=== PATIENT | male | born 1960 | race Caucasian/White ===

== ENCOUNTER 2019-07-05 01:57 | Outpatient (CLI) | payer BC, SELFPAY ==
[2019-07-05 12:22] LABS: Calculated LDL 48 mg/dL (<100); Cholesterol 115 mg/dL (<200); Glucose 91 mg/dL (74-106); HDL Cholesterol 44 mg/dL (40-60); Triglyceride 119 mg/dL (<150)
[2019-07-08 10:05] LABS: PSA, Screening 0.7 ng/mL (0.0-4.5)
== END 2019-07-05 02:17 ==
PROVIDERS: PCP Family Medicine; Visit Provider Family Medicine
DX: E78.5 Hyperlipidemia, unspecified (principal); R73.9 Hyperglycemia, unspecified; Z12.5 Encounter for screening for malignant neoplasm of prostate
CPT/HCPCS: 36415; 80061; 82947; 84153

== ENCOUNTER 2019-11-19 07:37 | Outpatient (CLI) | payer BC, SELFPAY ==
[2019-11-21 07:38] LABS: SARS-CoV-2 RNA Undetected (Undetected)
== END 2019-11-19 07:57 ==
PROVIDERS: PCP Family Medicine; Visit Provider Family Medicine
DX: Z11.59 Encounter for screening for other viral diseases (principal)
CPT/HCPCS: U0003

== ENCOUNTER 2020-06-23 09:58 | Outpatient (CLI) | payer BC, SELFPAY ==
[2020-06-24 12:26] LABS: COVID-19 RT-PCR UVMMC Result Positive (Negative)
== END 2020-06-23 09:59 | disposition home or self-care (01) ==
LOC: LBO 09:58
PROVIDERS: PCP Family Medicine; Visit Provider Family Medicine
DX: Z20.822 Contact with and (suspected) exposure to COVID-19 (principal)
CPT/HCPCS: U0003

== ENCOUNTER 2020-07-02 01:17 | Outpatient (CLI) | payer BC, SELFPAY ==
--- NOTE | 2020-07-02 07:00 | DI.RAD_ITS ---
EXAM: XR CHEST 2V PA LATERAL CLINICAL HISTORY: cough; fever; covid 19 positive,U07.1 TECHNIQUE: 2D digital imaging was performed. COMPARISON: No exams were available for comparison FINDINGS: MEDIASTINUM: Normal. HEART: Normal. PULMONARY VASCULATURE: Normal. LUNGS: Clear. PLEURAL SPACE: No pleural effusion or pneumothorax. BONE:Within normal limits for the patient's age. OTHER FINDINGS:Normal. IMPRESSION: No acute pulmonary findings. DATA REPOSITORY: RADIATION DOSE DELIVERED:
== END 2020-07-02 01:37 ==
PROVIDERS: PCP Family Medicine; Visit Provider Family Medicine
DX: U07.1 COVID-19 (principal)
CPT/HCPCS: 71046

== ENCOUNTER 2020-07-22 17:31 | Outpatient (REF) | payer BC, SELFPAY ==
[2020-07-22 22:32] LABS: CREATININE 1.2 mg/dL (0.70-1.30); Calculated LDL 51 mg/dL (<100); Cholesterol 165 mg/dL (<200); Glucose 94 mg/dL (74-106); HDL Cholesterol 41 mg/dL (40-60); Triglyceride 367 mg/dL (<150)
[2020-07-23 17:18] LABS: PSA, Diagnostic 1.2 ng/mL (0.0-4.5)
== END 2020-07-22 17:32 | disposition home or self-care (01) ==
LOC: LBN 17:31
PROVIDERS: PCP Family Medicine; Visit Provider Family Medicine
DX: R73.9 Hyperglycemia, unspecified (principal); I10 Essential (primary) hypertension; E78.5 Hyperlipidemia, unspecified; C61 Malignant neoplasm of prostate
CPT/HCPCS: 80061; 82947; 82565; 84153

== ENCOUNTER 2020-08-12 21:36 | Outpatient (REF) | payer BC, SELFPAY ==
[2020-08-12 16:30] LABS: Triglyceride 208 mg/dL (<150)
== END 2020-08-12 21:37 | disposition home or self-care (01) ==
LOC: LBN 21:36
PROVIDERS: PCP Family Medicine; Visit Provider Family Medicine
DX: E78.1 Pure hyperglyceridemia (principal)
CPT/HCPCS: 84478

== ENCOUNTER 2021-11-23 03:07 | Outpatient (CLI) | payer BC, SELFPAY ==
[2021-11-23 08:42] LABS: Calculated LDL 65 mg/dL (<100); Cholesterol 134 mg/dL (<200); HDL Cholesterol 49 mg/dL (40-60); Triglyceride 100 mg/dL (<150)
== END 2021-11-23 03:08 | disposition home or self-care (01) ==
LOC: LBO 03:10
PROVIDERS: PCP Family Medicine; Visit Provider Family Medicine
DX: E78.5 Hyperlipidemia, unspecified (principal); Z12.5 Encounter for screening for malignant neoplasm of prostate
CPT/HCPCS: 36415; 80061; 84153

== ENCOUNTER 2023-02-15 09:53 | Outpatient (CLI) | payer BC, SELFPAY ==
[2023-02-15 12:48] LABS: CREATININE 1.2 mg/dL (0.70-1.30); Estimated GFR 67.95 (mL/min/1.73m2); Glucose 107 mg/dL (74-106)
[2023-02-15 18:24] LABS: PSA, Screening 1.5 ng/mL (<=4.5)
== END 2023-02-15 09:54 | disposition home or self-care (01) ==
LOC: LOS 09:53
PROVIDERS: PCP Family Medicine; Referring Provider Family Medicine; Visit Provider Family Medicine
DX: Z12.5 Encounter for screening for malignant neoplasm of prostate; Z00.00 Encounter for general adult medical examination without abnormal findings
CPT/HCPCS: 36415; 82947; 84153; 82565

== ENCOUNTER 2024-02-28 16:44 | Outpatient (CLI) | payer BC, SELFPAY ==
[2024-02-28 16:38] LABS: Hemoglobin A1C 5.4 % (<5.7)
[2024-02-28 16:54] LABS: CREATININE 1.1 mg/dL (0.70-1.30); Calculated LDL 92 mg/dL (<100); Cholesterol 163 mg/dL (<200); Estimated GFR 74.96 (mL/min/1.73m2); HDL Cholesterol 57 mg/dL (40-60); Triglyceride 73 mg/dL (<150)
[2024-02-29 19:47] LABS: PSA, Screening 1.1 ng/mL (<=4.5)
== END 2024-02-28 16:45 | disposition home or self-care (01) ==
LOC: LBO 16:45
PROVIDERS: PCP Family Medicine; Visit Provider Family Medicine
DX: Z12.5 Encounter for screening for malignant neoplasm of prostate (principal); E11.51 Type 2 diabetes mellitus with diabetic peripheral angiopathy without gangrene; I70.209 Unspecified atherosclerosis of native arteries of extremities, unspecified extremity; E78.5 Hyperlipidemia, unspecified; I10 Essential (primary) hypertension
CPT/HCPCS: 36415; 80061; 84153; 82565; 83036

== ENCOUNTER → 2024-06-27 10:48 | Outpatient (BNVA) | payer MEDICARE, OTHER, SELFPAY | PROVIDERS: PCP Family Medicine; Referring Provider Family Medicine; Visit Provider Student in an Organized Health Care Education/Training Program | DX: K40.91 Unilateral inguinal hernia, without obstruction or gangrene, recurrent (principal) | CPT/HCPCS: 99204 ==

== ENCOUNTER 2024-07-24 06:04 | Day surgery (SDC) | payer MEDICARE, OTHER, SELFPAY ==
[2024-07-24] VITALS (31 sets, daily range): BP systolic 114–143; BP diastolic 71–99; PULSE 41–75; RESP 10–31; TEMP 36–36.6; O2SAT 93–98; BMI 30.2
[2024-07-24] MEDS: Heparin 5,000 UNITS/ML VIAL 5000 UNITS SC (06:47)
[2024-07-24] MEDS: Lactated Ringers 1,000 ML 80 ML IV (06:47)
--- NOTE | 2024-07-24 07:11 | W.ANESPRE ---
General Info Date of Service Date Performed: 07/24/24 Height: 5 ft 7 in Weight: 87.4 kg Body Mass Index (BMI): 30.2 Surgical Procedure: Operation Date: 07/24/24 07:40 Proposed Procedure Side Surgeon p Hernia Inguinal Laparoscopic w/Mesh Right Chavo Mathews MD Meds Allergies and Home Medications Allergies Allergy/AdvReac Type Severity Reaction Status Date / Time No Known Allergies Allergy Verified 07/24/24 06:40 Home Medication ?Medication ?Instructions ?Recorded multivitamin (Daily Multi-Vitamin 1 tab PO DAILY 06/19/19 tablet) ascorbic acid (vitamin C) 1,000 mg 1 g PO Q6H 07/22/20 tablet cholecalciferol (vitamin D3) 25 25 mcg PO DAILY Taking in winter02/28/24 mcg (1,000 unit) capsule (Vitamin D3) rosuvastatin 10 mg tablet 10 mg PO DAILY #90 tabs 03/25/24 Current Visit Medications: Current Medications Generic Name Dose Route Start Last Admin Trade Name Freq PRN Reason Stop Dose Admin Heparin Sodium (Porcine) 5,000 units 07/24/24 06:00 07/24/24 06:47 Heparin 5,000 Units/Ml Vial SC 07/24/24 23:59 5,000 units PREOP MUKESH Administration Ringer's Solution 1,000 mls @ 80 mls/hr 07/24/24 06:00 07/24/24 06:47 IV 07/24/24 23:59 80 mls/hr INFUSION MUKESH Administration IV Miscellaneous Supplies 1 each 07/24/24 06:00 Iv Access IV 07/24/24 23:59 DIRECTED MUKESH Sodium Chloride 0 ml 07/24/24 06:00 Normal Saline Flush 10 Ml Syr IV 07/24/24 23:59 PRN PRN Sodium Chloride 0 ml 07/24/24 06:00 Normal Saline 10 Ml Vial IJ 07/24/24 23:59 DIRECTED PRN Sterile Water 0 ml 07/24/24 06:00 Water,Injection,Sterile 10 Ml Vial IJ 07/24/24 23:59 DIRECTED PRN PFSH Active Problems Active Problems: Problem Status Onset Code Recurrent right inguinal hernia Acute K40.91 Inguinal hernia of right side without obstruction or gangrene Acute K40.90 Screening for colorectal cancer Acute Z12.11, Z12.12 Mixed hyperlipidemia Acute E78.2 Postnasal drip Acute R09.82 Medical History Medical History Cerumen impaction COVID-19 (~09/02/22) Kidney stone Hernia 1993 Incarcerated right inguinal hernia 07/18/2015 Surgical History Surgical History H/O inguinal hernia repair (~02/2022) left H/O colonoscopy 08/21/13, [facility] History of colon resection Resection and repair 07/18/15 H/O vasectomy 08/11/03 S/P hernia repair Tobacco Smoking/Tobacco Use Status: Never Passive smoking exposure: No Second hand exposure: No Alcohol Alcohol Intake: current Alcohol intake frequency: a few times a month Alcohol type: wine Substance Use Substance use: Never Substance use type: does not use Vital Signs and Lab Results Vital Signs Most Recent Vital Signs in EMR: Most Recent Vital Signs Pulse Resp BP Pulse Ox 56 L 16 129/87 96 07/24/24 06:23 07/24/24 06:23 07/24/24 06:23 07/24/24 06:23 Lab Results Blood Type / Crossmatch: No Data to Display Complete Blood Count: No Data to Display Complete Metabolic Panel: No Data to Display Liver Function Panel: No Data to Display Coagulation Panel: No Data to Display Cardiac Panel: No Data to Display Arterial Blood Gas: No Data to Display Venous Blood Gas: No Data to Display Pancreas Panel: No Data to Display Thyroid Panel: No Data to Display Infectious Disease: No Data to Display Blood Cultures: No Data to Display Toxicology Panel: No Data to Display Imaging and Studies Imaging and Studies Study information below may be from another EMR and interpreted by another provider. Please see original notes in EMR for more complete details. EKG Summary: 05/23/24 SB Anesthesia Assessment and Plan Anesthesia History Personal History: No History of Anesthesia Complications Family History: No Family History of Anesthesia Complications Exercise Tolerance Exercise Tolerance: Metabolic Equivalents>4 Pertinent Negatives Pertinent Negatives: No Symptoms of GERD, No Major Cardiovascular Symptoms or Complaints, No Major Pulmonary Symptoms or Complaints and No History of CVA/TIA Cardiac & Pulmonary Exam Cardiac Exam: Normal S1/S2 Heart Sounds Pulmonary Exam: Clear Bilateral Breath Sounds Implantable Cardiac Device Does patient have a Pacemaker or an ICD?: No Airway Exam Known Difficult Airway: No Mallampati Class: 2 Mouth Opening: Normal (> 3cm) Thyromental Distance: Greater than 3 cm Neck Range of Motion: Full ROM Neck Circumference: Normal Teeth Condition: Normal Dentition ASA Classification ASA Score: ASA 2 Emergency Case?: No NPO Status NPO Status: NPO Clears >2 hours, Solids >8 hours Anesthesia Plan Resuscitation Status: Full Code Anesthesia Technique: General Anesthesia Airway Planned: Endotracheal Tube Monitors Used: Standard Monitors
[2024-07-24] MEDS: Bupivacaine 0.25% Pres-Free 30 ML VIAL (08:23)
[2024-07-24] MEDS: Bupivacaine LIPOSOME/PF 133 MG/10 ML VIAL IJ (08:23)
--- NOTE | 2024-07-24 09:42 | W.PM.OP ---
Operative Note Operative Note Refer to Anesthesia Record Findings: PROCEDURES PERFORMED: 1. Laparoscopic RIGHT inguinal hernia repair of recurrent, reducible inguinal hernia 2. Laparoscopic lysis of adhesions 3. Laparoscopic bilateral TAP block Preoperative Diagnosis: Reducible recurrent RIGHT inguinal hernia Postoperative Diagnosis: Incarcerated recurrent right direct hernia Surgeon: Brandie Mathews Assist: Mayra Anesthesia: General Anesthesiologist: Consuelo Indication: Symptomatic reducible right recurrent inguinal hernia in setting of prior open/anterior repair. Findings: No bowel but there was densely incarcerated preperitoneal fat, probably a small amount of bladder in a tight direct defect. There was an incidental, small indirect defect. Posterior (JOSE) repair with 3D maribell MID mesh Complications: None Estimated Blood Loss: (5cc) Scant Specimens removed: None Grafts or implants: 3D max MID RIGHT large mesh Procedure in detail: Written consent was obtained from the patient who was in agreement with the risks, the benefits and the indications for the procedure. The patient was taken to the operating suite and laid supine on the operating table with his left arm tucked. IV antibiotics had been given. Venodynes were in place. General anesthesia was administered which was tolerated very well. We then prepped and draped the abdomen in sterile fashion. A timeout was performed. When we were all in agreement we began the procedure. Local anesthetic was injected at each trocar site. Within the umbilicus a small stab incision was made and a 5 mm Optiview trocar was used to enter into the abdomen under direct visualization. The liver was inspected and did not appear cirrhotic. There were a significant amount of intra-abdominal adhesions of omentum to the previous midline laparotomy scar. I placed 2 more 5 mm ports under direct visualization and then used a LigaSure to lyse all the adhesions creating exposure to the pelvis. A very tight, direct RIGHT inguinal hernia was present with no incarcerated intra-abdominal contents. There was a small indirect hernia with nothing incarcerated. The umbilical port was upsized to a 12 mm to facilitate passing the mesh and sutures. The patient was placed in Trendelenburg and we had good visualization of the intra-abdominal contents, pelvis and the right pelvic sidewall. In standard/usual fashion I created a peritoneal flap. A combination of blunt and sharp dissection was performed using the LigaSure. Preperitoneal fat was densely incarcerated in the direct defect. I suspect at least the medial corner of the herniated tissue is actually some of his bladder. I was able to finally reduce it all laparoscopically with careful dissection and pressure externally. After getting the hernia sac and everything else reduced, I developed the space all the way medial to beyond the pubic tubercle midline. Vaughn's ligament was clearly exposed. There was no femoral defect. Hemostasis was excellent. A 3D max mesh was introduced in usual fashion and laid perfectly within the space I had created. The indirect, direct as well as the femoral spaces were all completely covered with significant and adequate overlay. I sutured a corner of the mesh to Vaughn's ligament with Vicryl and in the upper outer quadrant to the fascia with Vicryl to the mesh would not rotate or migrate. Next I closed my peritoneal flap with the V-loc. Hemostasis was excellent. I checked and verified there is no bleeding from the omental adhesions I had lysed. I removed the needles from the abdomen. I closed the 12 mm defect with Vicryl through the fascia. I closed the skin with Monocryl and put Dermabond on top. The testicles were present in the scrotum bilateral after the procedure. The sponge, instrument and sharps count was correct x3 at the end of the procedure. The patient tolerated the procedure well and was taken to the PACU in hemodynamically stable condition. Date of Procedure: 07/24/24
--- NOTE | 2024-07-24 10:10 | W.PM.DSUDISC ---
Date of service: 07/24/24 Discharge Plan Disposition Patient Disposition: Home Condition: Good Discharge Details Attending Provider: Chavo Mathews Primary Care Provider: Kip Nuñez Home Meds and New Rx's Prescriptions: No Action ascorbic acid (vitamin C) 1,000 mg tablet 1 g PO Q6H cholecalciferol (vitamin D3) [Vitamin D3] 25 mcg (1,000 unit) capsule 25 mcg PO DAILY Patient Comments: Due to lack of sunshine multivitamin [Daily Multi-Vitamin] Tablet 1 tab PO DAILY rosuvastatin 10 mg tablet 10 mg PO DAILY Qty: 90 4RF Discharge Instructions Additional Instructions: INSTRUCTIONS: Incisions: Keep clean and dry but they do not need to be covered. It is okay to shower but no tub bathing for 1 week. You can peel the glue off after 1 week. Activity: As tolerated. Light duty without any heavy lifting/pulling or pushing for 6-8 weeks. Diet: Regular diet as tolerated. Medications: Resume all of your usual/regular home medications. Follow-up: If you are having any issues or concerns call the surgery office immediately. If you want to have a routine follow-up that is perfectly fine and you can call and schedule an. If everything is otherwise going well, you do not need to follow-up. Pain control: Take Tylenol, 1000 mg, every 6 hours on a schedule for the next 3 days. You can use ibuprofen in addition to Tylenol if needed and you can also use ice if needed. Overall: Symptoms should not be worsening. If you have any difficulty breathing or you have return of symptoms of brought you to the hospital or your pain is otherwise worsening each day and you should call the doctor's office or come into the hospital to be checked out. Stand Alone Forms: Anesthesia Discharge Inst., Nini Thomason ([facility]) Diet:: As Tolerated Discharge Orders Discharge Orders: Discharge Order (Routine); Ordered 07/24/24 Ordered By: Chavo Mathews
[2024-07-24] MEDS: Normal Saline 10 ML VIAL IJ (10:15)
[2024-07-24] MEDS: HYDROmorphone 2 MG/ML SYR IVP ×2 (10:15→10:26)
--- NOTE | 2024-07-24 10:20 | W.ANESPOSTOP ---
Postoperative Evaluation Date, Time and Location Date Performed: 07/24/24 Time Performed: 10:19 Patient Location: PACU Vital Signs Most Recent Imported Vital Signs: Most Recent Vital Signs Temp Pulse Resp BP Pulse Ox 36.5 C 48 L 14 124/87 95 07/24/24 10:16 07/24/24 10:16 07/24/24 10:16 07/24/24 10:16 07/24/24 10:16 Pain Score Most Recent Pain Score: Most Recent Pain Score Pain Level 3 07/24/24 10:09 Assessment Mental Status: Awake (Alert & Oriented to Patient Baseline) Airway and Respiratory Function: Patent airway with normal (patient baseline) respiratory exam Cardiovascular Function: Hemodynamically Stable Hydration Status: Adequately Hydrated Nausea & Vomiting: No Nausea or Vomiting Pain: Pain is tolerable per patient Peripheral Nerve Block: Patient did not receive a nerve block
== END 2024-07-24 12:15 | disposition home or self-care (01) ==
PROVIDERS: PCP Family Medicine; Visit Provider Student in an Organized Health Care Education/Training Program
PROC: (CPT 49650; principal; 2024-07-24 07:30)
DX: K40.31 Unilateral inguinal hernia, with obstruction, without gangrene, recurrent (principal); K66.0 Peritoneal adhesions (postprocedural) (postinfection)
CPT/HCPCS: 49651; C1781; J0131; J0665; J0666; J1100; J1171; J1644; J1885; J2003; J2405; J2704